=== PATIENT | male | born 1965 | race Asian ===

== ENCOUNTER 2023-07-11 11:26 | Emergency (ER) | payer OTHER ==
[2023-07-11 11:49] VITALS: BP 131/89; PULSE 91; RESP 16; TEMP 98.1; BMI 28.8
== END 2023-07-11 14:58 | disposition home or self-care (01) ==
LOC: JERFT 11:26
PROC: 2W3JX1Z Immobilization of Right Finger using Splint (ICD-10-PCS; principal; 2023-07-11)
DX: S62.632A Displaced fracture of distal phalanx of right middle finger, initial encounter for closed fracture (principal); R22.31 Localized swelling, mass and lump, right upper limb; W22.8XXA Striking against or struck by other objects, initial encounter; Y99.0 Civilian activity done for income or pay
CPT/HCPCS: 73130-TC-RT-FY; 99283-25